=== PATIENT | female | born 1950 | race Caucasian/White ===

== ENCOUNTER → 2021-09-23 | Outpatient (CLI) | payer BC, MEDICARE | LOC: CT 08:00 | DX: C43.61 Malignant melanoma of right upper limb, including shoulder (principal); D64.9 Anemia, unspecified; J90 Pleural effusion, not elsewhere classified; R91.8 Other nonspecific abnormal finding of lung field | CPT/HCPCS: 71260; Q9967 ==

== ENCOUNTER → 2022-03-05 | Outpatient (CLI) | payer BC, MEDICARE | LOC: CT 06:52 → MRI 03-07 13:00 | DX: C43.61 Malignant melanoma of right upper limb, including shoulder (principal); D64.9 Anemia, unspecified | CPT/HCPCS: 71260; Q9967 ==

== ENCOUNTER → 2022-03-07 | Outpatient (CLI) | payer BC, MEDICARE | LOC: MRI 11:33 | DX: C43.61 Malignant melanoma of right upper limb, including shoulder (principal); D64.9 Anemia, unspecified; H70.11 Chronic mastoiditis, right ear | CPT/HCPCS: 70553; A9577 ==

== ENCOUNTER → 2022-03-20 | Outpatient (CLI) | payer BC, MEDICARE | LOC: KOH-I 14:19 | DX: C43.61 Malignant melanoma of right upper limb, including shoulder (principal); D64.9 Anemia, unspecified; K90.9 Intestinal malabsorption, unspecified; M51.34 Other intervertebral disc degeneration, thoracic region | CPT/HCPCS: 72146 ==

== ENCOUNTER → 2022-04-01 | Day surgery (SDC) | payer BC, MEDICARE ==
[~2022-04-01] MED LIST: ASPIRIN81 MG PO; GABAPENTIN600 MG PO; HYDROCODON-ACE1 EAC6 PO; LIPITOR TAB 2020 MG PO; LISINOPRIL-HCT1 EAC2 PO; PREMARIN0.625 MG PO; PROAIR DIGIHAL90 MCG INH; PROTONIX40 MG PO; VALIUM5 MG PO; VITAMIN B12 OTC
== END | disposition home or self-care (01) ==
LOC: OR 07:52
DX: K22.2 Esophageal obstruction (principal); K29.60 Other gastritis without bleeding; K31.A15 Gastric intestinal metaplasia without dysplasia, involving multiple sites; K44.9 Diaphragmatic hernia without obstruction or gangrene; K31.9 Disease of stomach and duodenum, unspecified; I10 Essential (primary) hypertension; E78.5 Hyperlipidemia, unspecified; D64.9 Anemia, unspecified; F41.9 Anxiety disorder, unspecified; F32.A Depression, unspecified; E66.3 Overweight; Z68.26 Body mass index [BMI] 26.0-26.9, adult; Z79.82 Long term (current) use of aspirin; Z79.899 Other long term (current) drug therapy; Z88.2 Allergy status to sulfonamides; Z88.6 Allergy status to analgesic agent; Z88.8 Allergy status to other drugs, medicaments and biological substances
CPT/HCPCS: J2704; J7040

== ENCOUNTER 2022-04-19 17:58 | Emergency (ER) | payer BC, MEDICARE ==
[2022-04-19 19:20] LABS: HEMOGLOBIN 9.1 gm/dl (12.3-15.3); RED BLOOD COUNT 3.4 M/UL (4.00-5.10); WHITE BLOOD COUNT 3.1 K/UL (4.5-11.0)
== END 2022-04-19 23:20 | disposition home or self-care (01) ==
LOC: ER1 17:58
DX: R13.10 Dysphagia, unspecified (principal); R06.02 Shortness of breath; R60.0 Localized edema; I10 Essential (primary) hypertension; E78.5 Hyperlipidemia, unspecified; Z85.01 Personal history of malignant neoplasm of esophagus; Z87.19 Personal history of other diseases of the digestive system; Z85.118 Personal history of other malignant neoplasm of bronchus and lung; Z90.49 Acquired absence of other specified parts of digestive tract; Z20.822 Contact with and (suspected) exposure to COVID-19
CPT/HCPCS: 0240U; 71045; 80053; 82550; 82553; 84484; 85025; 93005; 99284

== ENCOUNTER → 2022-05-28 | Day surgery (SDC) | payer BC, MEDICARE | END | disposition home or self-care (01) | LOC: OR 09:04 | DX: K22.2 Esophageal obstruction (principal); I10 Essential (primary) hypertension; E66.3 Overweight; Z68.26 Body mass index [BMI] 26.0-26.9, adult; Z88.2 Allergy status to sulfonamides; Z88.6 Allergy status to analgesic agent; Z88.8 Allergy status to other drugs, medicaments and biological substances; Z79.82 Long term (current) use of aspirin; Z79.899 Other long term (current) drug therapy | CPT/HCPCS: 76000; J2704; J7040 ==